=== PATIENT | male | born 1970 | race Caucasian/White ===

== ENCOUNTER 2017-08-09 00:50 | Emergency (ER) | payer MEDICAID, SELFPAY ==
[2017-08-09 00:51] VITALS: BP 143/107; PULSE 79; RESP 14; TEMP 36.6; O2SAT 100; BMI 26.2
--- NOTE | 2017-08-09 01:55 | EKG12_ITS ---
Test Reason : DIZZINESS Blood Pressure : / mmHG Vent. Rate : 052 BPM Atrial Rate : 052 BPM P-R Int : 128 ms QRS Dur : 094 ms QT Int : 422 ms P-R-T Axes : 015 055 033 degrees QTc Int : 392 ms Sinus bradycardia Otherwise normal ECG Confirmed by GIULIANA HERNANDEZ MD ([id number]), medical transcription editor AVINASH CARRILLO ([id number] on 08/15/2017 3:07:38 PM Referred By: LILO Confirmed By:GIULIANA HERNANDEZ MD
[2017-08-09] MEDS: 0.9% Normal Saline 1,000 ML 1000 ML IV (02:03)
[2017-08-09 02:04] LABS: Absolute Lymphocyte Count 2.63 X10^3/ul (0.83-4.51); Absolute Neutrophil Count 4.3 X10^3/uL (2.0-7.7); Basophil# 0.06 X10^3/uL; Basophil% 0.7 % (0-1); Eosinophil# 0.52 X10^3/uL; Eosinophils% 6.2 % (0-5); Hematocrit 47.7 % (40-54); Hemoglobin 16.4 g/dl (13.0-16.5); Lymphocyte # 2.63 X10^3/ul (4.0); Lymphocyte % 31.5 % (19-41); Mean Corp Hgb Conc 34.4 g/gl (32-36); Mean Corpuscular Hgb 32.7 pg (27.0-32.0); Mean Platelet Vol. 10.9 fl (6.2-12.0); Monocyte# 0.79 X10^3/uL; Monocyte% 9.4 % (0-10); Neutrophil # 4.34 X10^3/uL (2.7-7.7); Platelet Count 247 K/mm3 (150-450); RBC Distribution Width CV 12.8 % (11.6-14.6); RBC Distribution Width SD 43.8 fl (35.1-43.9); Red Blood Count 5.02 M/mm3 (4.6-6.2); White Blood Count 8.4 K/mm3 (4.4-11.0)
[2017-08-09 02:06] LABS: POSITIVE COUNT NO; POSITIVE DIFFERENTIAL NO; POSITIVE MORPHOLOGY NO
[2017-08-09 02:12] LABS: Anion Gap 6 (5-15); BUN 10 mg/dL (7-18); BUN/Creat Ratio 8.2 RATIO (10-20); Calcium,Total 8.9 mg/dL (8.5-10.1); Chloride 106 mmol/L (98-107); Creatinine, Serum 1.22 mg/dL (0.70-1.30); D-Dimer Quantitative (DVT/PE) < 0.27 FEU/ug/m (0.27-0.49); EST Glomerular Filtration Rate 68 mL/min (>60); Est Glom Filt Rate - Afr Amer 82 mL/min (>60); Estimated Creatinine Clearance 90.43 ml/min; Glucose 89 mg/dL (74-106); Potassium 3.9 mmol/L (3.5-5.1); Sodium Level 141 mmol/L (136-145)
--- NOTE | 2017-08-09 02:15 | RAD_ITS ---
STUDY: X-RAY CHEST REASON FOR EXAM: Male, 46 years old. Rib pain TECHNIQUE: Frontal and lateral views of the chest. COMPARISON: None. FINDINGS: The lungs are clear and expanded. There is no demonstrated pleural abnormality. Normal size heart. Normal mediastinum and dustin. Normal visualized pulmonary arteries. Normal visualized aortic arch and descending thoracic aorta. Normal visualized thoracic spine. Remote deformities of left ribs 7 and 8. There is no demonstrated abnormality of the visualized soft tissue structures of the upper abdomen. RAD/Chest PA and Lateral IMPRESSION: Remote deformities of left ribs 7 and 8. No acute pulmonary findings. Electronically Signed: Phan Sears MD at 3:38 EDT Tel , Service support ,
[2017-08-09 02:51] VITALS: BP 143/86; PULSE 70; RESP 16; O2SAT 98
--- NOTE | 2017-08-09 02:54 | ED.DCSUM_ITS ---
- ER Visit Summary Date of Service: 08/09/17 Chief Complaint: Near syncope History of Present Illness: The patient is a 46 M 12 month history intermittent near syncopal episodes. States with lightheaded symptoms, nausea symptoms with this. Denies any shortness breath or palpitations. No chest pains. Smoker's cough. No recent vomiting or diarrhea. States symptoms worsen her past 2 days. He states he does drink oral fluids however drinks tea with caffeine. Increased urination, no dysuria. In addition states he had a PE 6 years ago with unclear etiology. He is on anticoagulants for a year. Denies any recent travel, surgeries, or immobilizations. Patient does admit to tobacco along with marijuana use. No fevers. Physical Examination: General: Alert and oriented ?3, no acute distress HEENT: Normocephalic, atraumatic. Moist mucosa membranes Neck: supple, nontender. Cardiovascular: Regular rate and rhythm, no murmurs Respiratory: Normal breath sounds, symmetric, no distress Abdomen: Soft, nontender, nondistended Extremities: Nontender, no edema, pulses intact ?4 Neuro: no focal neurological deficits. Test Results: EKG: Sinus rate of 52, no ST or T-wave changes. No signs of heart block. QTc 392. Hemoglobin 16.4. Potassium 3.9. D-dimer negative. Chest x-ray negative. Emergency Department Course and Treatment: Patient presents near syncopal episodes. EKG is sinus bradycardia with no signs of heart block. Patient healthy individual, normal for patient. Low risk Wells criteria for PE due to his PE history. D-dimer obtained which was negative. Electrolytes and hemoglobin stable. He is given IV fluids, reevaluation had improving symptoms. Discussed decreasing his caffeine intake decreased urine output. We will continue oral fluids he will monitor symptoms and follow-up with his PCP. All questions were answered. Treatment Plan: [] Disposition: Discharge Impression: Near syncope This note was generated with [employer] dictation software. It may contain incorrect words, spelling, and punctuation that were not noted in review of the chart prior to signing ED Disposition - Plan for ED Patient: Disposition: Home or Assisted Living Chief Complaint: Dizziness Diagnosis: Near syncope Instructions: ED Near Syncope Unkn Referrals: Michael Munguia III, MD [Primary Care Provider] - 3-5 Days
== END 2017-08-09 03:01 | disposition home or self-care (01) ==
PROVIDERS: Emergency Provider Emergency Medicine; Family Provider Family Medicine; PCP Family Medicine
DX: R55 Syncope and collapse (principal); R11.0 Nausea; R05 Cough; Z86.711 Personal history of pulmonary embolism; F12.90 Cannabis use, unspecified, uncomplicated; Z72.0 Tobacco use; R00.1 Bradycardia, unspecified
CPT/HCPCS: 71046; 80048; 85025; 85379; 93005; 99284; J7030; A4216

== ENCOUNTER 2021-07-30 12:40 | Emergency (ER) | payer MEDICAID, SELFPAY ==
[2021-07-30 12:42] VITALS: BP 111/78; PULSE 85; RESP 16; TEMP 36; O2SAT 100; BMI 25.3
[2021-07-30] MEDS: Tetracaine 0.5% Ophthalmic Bottle 1 DRP RIGHT EYE (13:19)
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
[2021-07-30] MEDS: Neomycin/Bacitracin/Polymyxin Opth. Ointment 1 APPLIC LEFT EYE (13:50)
== END 2021-07-30 13:51 | disposition home or self-care (01) ==
LOC: ED 13:42
PROVIDERS: Emergency Provider Emergency Medicine; PCP Family Medicine; Visit Provider Emergency Medicine
DX: T15.92XA Foreign body on external eye, part unspecified, left eye, initial encounter (principal); F17.210 Nicotine dependence, cigarettes, uncomplicated; X58.XXXA Exposure to other specified factors, initial encounter
CPT/HCPCS: 99282

== ENCOUNTER 2021-08-31 23:49 | Emergency (ER) | payer MEDICAID, SELFPAY ==
[2021-08-31 23:50] VITALS: BP 122/82; PULSE 98; RESP 16; TEMP 35.7; O2SAT 98; BMI 25.8
--- NOTE | 2021-09-01 00:34 | EX.ED.VIS.EY ---
HPI History of Present Illness Chief Complaint: Eye Problem Narrative Narrative: Patient is a 50-year-old male who reports no previous medical issues other than foreign bodies in his eye. 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 He states he was working today and wearing his protective glasses but later in the day felt there was something in his eye. He states he flushed it out in the shower at home but still felt irritation and secondary to this comes in for evaluation. The patient denies any change in vision or contact lens use. PFSH PFSH no medical history Home Medications NK 08/09/17 [History Last Taken Unknown] Allergy/AdvReac Type Severity Reaction Status Date / Time No Known Allergies Allergy Verified 08/31/21 23:50 Social History Smoking Status: Current every day smoker tobacco type: cigarettes ROS ROS ED Constitutional Constitutional ED: Denies chills or fever(s) Eyes Eyes: Reports other Details: Positive right eye pain ; Denies blurry vision or change in vision ENT ENT ED: Denies sore throat Cardiovascular Cardiovascular: Denies chest pain Respiratory/Chest Respiratory/Chest: Denies cough or dyspnea Gastrointestinal Gastrointestinal: Denies abdominal pain, diarrhea, nausea or vomiting Genitourinary Genitourinary ED: Denies dysuria Musculoskeletal Musculoskeletal: Denies myalgias Integumentary Denies rash Neurologic Neurologic: Denies headache(s) Hematologic/Lymphatic Hematologic/Lymphatic: Denies easy bleeding or easy bruising EXAM Physical Exam Const Vital Signs: 08/31/21 23:50 Temperature 96.3 F L Temperature Source Temporal Pulse Rate 98 Respiratory Rate 16 Blood Pressure 122/82 H Blood Pressure Mean 95 Pulse Ox 98 Oxygen Delivery Method Room Air Positive well nourished and well developed General Appearance ED: well developed Eyes PERRL and EOMs intact bilaterally Eyes Narrative: There is mild scleral injection noted on the right with increased tearing. Patient does receive relief of pain with tetracaine. The upper lid was everted there is no obvious foreign body. Staining with fluorescein shows small uptake of dye in the cornea over top the iris around the 12 to 1 o'clock position. No obvious foreign body noted. Negative Vincent sign Neck supple Resp normal respiratory effort and clear to auscultation bilaterally Cardio regular rate and regular rhythm Extremity normal to inspection Neuro oriented x3 and CN's II-XII intact bilaterally Sensorium / Orientation: alert Psych mental status grossly normal Skin no rashes or lesions noted MDM MDM MDM Narrative Medical decision making narrative: Patient presented to the ER with history concerning for retained foreign object. Physical exam did not show any signs of retained foreign body in the right. It did document a small corneal abrasion which does correlate with his report of injury earlier in the day. He does not wear contacts and states he has antibiotics already at home from a previous foreign body about 2 to 3 weeks ago. He has no signs of globe rupture. Therefore patient states he will use antibiotics that he already has prescribed at home and as there is no foreign body to remove he is otherwise safe for discharge Discharge Plan Triage Chief Complaint: Eye Problem ED Provider: Mack Cullen Dx/Rx/DC Orders Instructions: ED Corneal Abrasion Prescriptions: No Action NK Primary Care Provider: Care Physician,No Primary Referrals: Christiane Chavez MD [STAFF PHYSICIAN] - 3-5 Days if not improving Care Physician,No Primary [Primary Care Provider] - Activity Restrictions/Additional Instructions: Please use the antibiotics you have at home are ready for the next 3 to 5 days to prevent infection and follow-up with ophthalmology or return to the ER should you have any further concerns Disposition Disposition: Home, Self Care Discharge Date/Time: 09/01/21 00:47
[2021-09-01] MEDS: Fluorescein 1 MG STRIP 1 STRIP RIGHT EYE (00:46)
[2021-09-01] MEDS: Tetracaine 0.5% Ophthalmic Bottle 1 DRP RIGHT EYE (00:46)
== END 2021-09-01 00:47 | disposition home or self-care (01) ==
PROVIDERS: Emergency Provider Emergency Medicine; Visit Provider Emergency Medicine
DX: S05.01XA Injury of conjunctiva and corneal abrasion without foreign body, right eye, initial encounter (principal); F17.210 Nicotine dependence, cigarettes, uncomplicated
CPT/HCPCS: 99282